=== PATIENT | female | born 1990 | race Caucasian/White ===

== ENCOUNTER 2018-07-12 08:42 | Day surgery (SDC) | payer OTHER ==
[~2018-07-12] VITALS: Ht 152.4 cm; Wt 60.4 kg
[2018-07-12] VITALS (11 sets, daily range): BP systolic 103–113; BP diastolic 68–75; PULSE 71–80; RESP 16–18
[~2018-07-12 08:42] MED LIST: CEFAZOLIN 2 GM/50 ML (PMX) 50 ML IVPB ONE; SEVOFLURANE 15 MIN ONE; SOD CHLORIDE 0.9% 1,000 ML IV SCH
[2018-07-12] MEDS ORDERED: BUPIVACAINE 0.25% (MPF) 30 ML INJ ONE (13:15)
--- NOTE | 2018-07-12 13:17 | PREAC ---
Date/Time of Note Date/Time of Note DATE: 07/12/18 TIME: 13:14 Anesthesia Eval and Record Evaluation Time Pre-Procedure Interview DATE: 07/12/18 TIME: 13:14 Age 27 Sex female NPO: 8 hrs Preoperative diagnosis Right shoulder mass, left back mass Planned procedure Excision of masses Past Medical History Past Medical History: None Surgery & Anesthesia Issues No known issue Meds Anticoagulation: No Beta Mary within 24 hr: No Reason Beta Mary not given: Pt. not on B-Mary No Active Prescriptions or Reported Meds Current Medications Sodium Chloride 1,000 ml @ 75 mls/hr [id number] IV Last administered on 07/12/18at 11:32; Admin Dose 75 MLS/HR; Start 07/12/18 at 07:00 Meds reviewed: Yes Allergies Coded Allergies: No Known Allergy (Unverified , 07/12/18) Allergies Reviewed: Yes Labs/Studies Labs Reviewed: Reviewed by anesthesiologist test: Negative Pre-procedure Exam Last vitals Vital Signs Date Temp Pulse Resp B/P (MAP) Pulse Ox O2 O2 Flow FiO2 Time Delivery Rate 07/12/18 97.9 77 16 113/75 100 Room Air 11:54 (88) Airway: Adequate mouth opening Mallampati: Mallampati I Teeth: Normal Lung: Normal Heart: Normal ASA Physical Status ASA physical status: 1 Emergency: None Planned Anesthetic General/MAC: LMA Planned Pain Management Parenteral pain med Pre-operative Attestations Prior to commencing anesthesia and surgery, the patient was re-evaluated, there was verification of: *The patient's identity *The results of appropriate recent lab work and preoperative vital signs *The above evaluation not changing prior to induction *Anesthetic plan, risk benefits, alternative and complications discussed with patient/family; questions answered; patient/family understands, accepts and wishes to proceed. BOYD HURLEY MD Jul 12, 2018 13:16
[2018-07-12] MEDS ORDERED: ONDANSETRON 4 MG INJ ONE (13:35)
[2018-07-12] MEDS ORDERED: PROPOFOL 20 ML ONE (13:35)
[2018-07-12] MEDS ORDERED: LIDOCAINE 2% (SDV) 5 ML INJ ONE (13:35)
[2018-07-12] MEDS ORDERED: CEFAZOLIN 1 GM INJ ONE (13:35)
[2018-07-12] MEDS ORDERED: METOCLOPRAMIDE 10 MG INJ ONE (13:35)
--- NOTE | 2018-07-12 14:15 | OPR ---
Date/Time of Note Date/Time of Note DATE: 07/12/18 TIME: 14:12 Operative Report Procedure Date: Jul 12, 2018 Preoperative Diagnosis right shoulder mass and left back mass Postoperative Diagnosis same Operation/Procedure Performed 1. excision of right shoulder mass 6 cm mass 6 cm incision 2. localized adjacent tissue transfer with the use of skin flaps 12 sq cm defect of right shoulder 3. excision of left shoulder mass 5 cm mass 5 cm incision 4. localized adjacent tissue transfer with the use of skin flaps 10 sq cm defect of left back 5. therapeutic injection of subcutaneous local anesthesia Surgeon see signature line Care Program Resident none Anesthesia Type: general Estimated Blood Loss: 0 - 10 ml's Transfusion none Specimen right shoulder mass and left back mass Grafts/Implants none Complications none Pt Condition Post Procedure: stable Indications This is a 27-year-old female with a right shoulder mass in the left back mass. She says it symptomatic and painful and wants to excise these 2 masses. Risks alternatives benefits and personal were discussed the patient. Patient expressed understanding consents to the operation. Procedure Description Patient is taken to the OR and prepped and draped in usual sterile fashion. Surgical time was performed. IV antibiotics were given. Elliptical incision was made over the right shoulder mass. Dissection with cautery skin onto the mass. The mass was circumferentially excised. Good hemostasis status. Due to tissue defect localization to his transfer with these of skin flaps was perfo rmed. Multilayer closed with interrupted 3-0 Vicryl and skin juanjo. Therapeutic subcutaneous local anesthesia was injected at the incision site. Attention was then paid to the left back mass. Elliptical incision made with a 15 blade over the mass. The mass was circumferentially excised. Good hemostasis status. Due to tissue defect localization to his transfer with these of skin flaps were performed. Multilayer closed with interrupted 3-0 Vicryl. Skin was then closed with skin juanjo. Therapeutic taste local anesthesia was injected at the incision site. Dry dressings were applied to both surgical sites. Kiesha QUEVEDO Jul 12, 2018 14:15
[2018-07-12] MEDS ORDERED: HYDROmorphONE 1 MG/5 ML IV SYRINGE IV PRN ×3 (14:30)
[2018-07-12] MEDS ORDERED: ONDANSETRON 4 MG INJ IV PRN (14:30)
[2018-07-12] MEDS ORDERED: OXYCODONE/ACETAMINOPHEN (5/325) TAB PO PRN ×2 (14:30)
[2018-07-12] MEDS ORDERED: METOCLOPRAMIDE 10 MG INJ IV PRN (14:30)
[2018-07-12] MEDS ORDERED: HYDROCODONE/APAP (5/325) TAB PO ONE (14:30)
[2018-07-12] MEDS ORDERED: MIDAZOLAM 1 MG/ML 2 ML INJ IV PRN (14:30)
[2018-07-12] MEDS ORDERED: MEPERIDINE 25 MG INJ IV PRN (14:30)
[2018-07-12] MEDS ORDERED: DIPHENHYDRAMINE 50 MG INJ IV PRN (14:30)
[2018-07-12] MEDS ORDERED: FENTAnyl 50 MCG/ML VIAL IV PRN ×2 (14:30)
[2018-07-12] MEDS: FENTAnyl 50 MCG/ML VIAL IV PRN ×2 (14:39→14:52)
--- NOTE | 2018-07-12 15:04 | PAC ---
Date/Time of Note Date/Time of Note DATE: 07/12/18 TIME: 15:04 Post-Anesthesia Notes Post-Anesthesia Note Last documented vital signs Vital Signs Date Temp Pulse Resp B/P (MAP) Pulse Ox O2 O2 Flow FiO2 Time Delivery Rate 07/12/18 74 108/72 100 Room Air 14:54 (84) 07/12/18 98.1 14:35 07/12/18 18 14:29 Activity: WNL Respiratory function: WNL Cardiovascular function: WNL Mental status: Baseline Pain reasonably controlled: Yes Hydration appropriate: Yes Nausea/Vomiting absent: Yes Comments BT: 98.5 BOYD HURLEY MD Jul 12, 2018 15:04
== END 2018-07-12 16:30 | disposition home or self-care (01) ==
LOC: SDS 08:42
PROVIDERS: ATTEND Surgery
DX: D23.61 Other benign neoplasm of skin of right upper limb, including shoulder (principal); D23.5 Other benign neoplasm of skin of trunk
CPT/HCPCS: 14000; 14021; 84703; 88307; J0690; J2405; J2765; J3010; Z7512; Z7610